=== PATIENT | female | born 1990 | race Caucasian/White ===

== ENCOUNTER 2017-11-01 09:10 | Emergency (ER) | payer OTHER ==
[2017-11-01] MEDS: ONDANSETRON (ODT) 4 MG TAB ODT (10:25)
[2017-11-01 10:39] LABS: URINE BLOOD (Dip) POC Trace-intact (NEGATIVE); URINE GLUCOSE (Dip) POC Negative (NEGATIVE); URINE KETONES (Dip) POC Negative (NEGATIVE); URINE LEUKOCYTE EST (Dip) POC Negative (NEGATIVE); URINE NITRITE (Dip) POC Negative (NEGATIVE); URINE TOTAL PROTEIN POC Trace (NEGATIVE)
[2017-11-01 10:39] LABS: URINE PH (Dip) POC 7.5 (5.0-8.5)
== END 2017-11-01 11:26 | disposition home or self-care (01) ==
LOC: FTE 09:10
DX: J06.9 Acute upper respiratory infection, unspecified (principal); R19.7 Diarrhea, unspecified
CPT/HCPCS: 81003; 99283